=== PATIENT | female | born 1970 | race Caucasian/White ===

== ENCOUNTER 2017-09-08 22:30 | Emergency (ER) | payer SELFPAY ==
[~2017-09-08 22:30] MED LIST: Z.0.NO CURRENT MEDS
[2017-09-08 22:36] VITALS: BP 129/73; PULSE 82; RESP 20; TEMP 97.9; O2SAT 97
[2017-09-08] MEDS ORDERED: LEVO75TA3 PO (22:54)
[2017-09-08] MEDS ORDERED: PRAZ1CAP PO (22:54)
[2017-09-08] MEDS ORDERED: TRAZ100T6 PO (22:54)
--- NOTE | 2017-09-08 23:29 | PD ---
HPI Chief Complaint: Back/ Neck Pain or Injury Time Seen by Provider: 23:22 Travel History International Travel<30 days: No Contact w/Intl Traveler<30days: No Traveled to known affect area: No History of Present Illness HPI 47-year-old female patient with history of chronic neck and back pains, radiculopathy, had surgical treatment for her radiculopathy done in [place] in December, states that since then she has had ongoing problems with back pains with radiation down the right leg. She states that her symptoms are not going away and she cannot get connected with care here in [place], is currently following up with Alexei Milan for PTSD, and wants to get evaluated for her back because she states that it is continuing and she cannot live this way. She denies any fevers, a new injuries, but states she has shooting pains down her right leg on an intermittent basis for several months. Modifying Factors: None Associated Signs & Symptoms: Acute on chronic back pains Risk Factors: Does not have pain management doctor down here in [facility] Past Medical History Anemia: Yes Arthritis: Yes (OSTEOARTHRITIS) Asthma: Yes Anxiety: Yes Depression: Yes Cancer: Yes (CERVICAL AND UTERINE) Headaches: Yes Herniated Disk: Yes (L4-L5) Insomnia: Yes Medical other: Yes (PAIN MANAGEMENT "CAUTERIZED THE NERVES IN MY BACK" DEC 2016 ) Psychiatric: Yes (PTSD) Schizophrenia: Yes ("BORDERLINE" PER PT) Thyroid Disease: Yes (HYPOTHYROIDISM) Ulcer: Yes (GASTRIC) Tetanus Vaccination: < 5 Years Influenza Vaccination: No ?: Not : 5 Para: 2 Miscarriage: 2 : 1 Ovarian Cysts: Yes ("FALLOPIAN TUBE CYST RUPTURED") Tubal Ligation: Yes Past Surgical History Hysterectomy: Yes Joint Replacement: Yes (L KNEE - 2 SURGERIES) Oral Surgery: Yes (TEETH REMOVED) Other Surgery: Yes (MULTIPLE GANGLION CYSTS REMOVED FROM WRIST AND BACK) Social History Alcohol Use: Yes (8 PK BEER DAILY) Tobacco Use: Yes (1 PPD) Substance Use: Yes (LEGAL MARIJUANA (FROM [place])) Allergies-Medications (Allergen,Severity, Reaction): Coded Allergies: codeine (Unverified Allergy, Severe, 09/08/17) penicillin G (Unverified Allergy, Severe, 09/08/17) Reported Meds & Prescriptions Reported Meds & Active Scripts Active Reported Prazosin (Prazosin HCl) 1 Mg Cap 1 Mg PO HS Trazodone (Trazodone HCl) 100 Mg Tablet 100 Mg PO HS Levothyroxine (Levothyroxine Sodium) 75 Mcg Tab 75 Mcg PO DAILY Review of Systems Except as stated in HPI: all other systems reviewed are Neg Physical Exam Narrative GENERAL: Well-developed middle age female patient currently in mild distress. Awake and oriented 3. SKIN: Focused skin assessment warm/dry. HEAD: Atraumatic. Normocephalic. EYES: Pupils equal and round. No scleral icterus. No injection or drainage. ENT: No nasal bleeding or discharge. Mucous membranes pink and moist. NECK: Trachea midline. No JVD. CARDIOVASCULAR: Regular rate and rhythm. No murmur appreciated. RESPIRATORY: No accessory muscle use. Clear to auscultation. Breath sounds equal bilaterally. GASTROINTESTINAL: Abdomen soft, non-tender, nondistended. Hepatic and splenic margins not palpable. MUSCULOSKELETAL: No obvious deformities. No clubbing. No cyanosis. No edema. BACK: No CVA tenderness. No rash. Tenderness on palpation of the right lower back area going down to the right SI joint area. No saddle anesthesia. EXTREMITIES: No clubbing, cyanosis, or edema. No joint tenderness, effusion, or edema noted. No calf tenderness. NEUROLOGICAL: Awake and alert. No obvious cranial nerve deficits. Motor grossly within normal limits. Normal speech. PSYCHIATRIC: Appropriate mood and affect; insight and judgment normal. Data Data Last Documented VS Vital Signs Date Time Temp Pulse Resp B/P (MAP) Pulse Ox O2 Delivery O2 Flow Rate FiO2 09/08/17 22:36 97.9 82 20 129/73 (91) 97 Orders Orders Spine, Thoracic-Ap/Lat/Sw(3vw) (09/08/17 23:23) Spine, Lumbar Comp W/Obliq (09/08/17 23:23) Tramadol-Acetamin 37.5-325 Mg (Ultracet (09/08/17 23:30) MDM Medical Decision Making Medical Screen Exam Complete: Yes Emergency Medical Condition: Yes Medical Record Reviewed: Yes Interpretation(s) Last 24 hours Impressions Thoracic Spine X-Ray 09/08/17 6100 Signed Impressions: Service Date/Time: Friday, September 08, 2017 23:28 - CONCLUSION: Mild scoliosis and degenerative changes. No acute bony findings Toby Richard MD Lumbar Spine X-Ray 09/08/17 2323 Signed Impressions: Service Date/Time: Friday, September 08, 2017 23:28 - CONCLUSION: Scoliosis and degenerative changes. No acute bony findings. Toby Richard MD Differential Diagnosis Acute on chronic back pains: Radiculopathy versus muscle spasms versus acute fractures versus pain med seeking Narrative Course X-ray shows scoliosis but did not show any signs of other acute processes. At this point, patient had been given tramadol in the ER and vital signs are stable. It appears that this is an acute on chronic back pain and some of the issues are related to the fact that she has not yet been able to get connected with care in the area. My plan would be to release her with symptomatic relief or pain and follow-up to a primary care physician and pain management as needed. Return for any worsening in symptoms as necessary. The plan has discussed with her and she states understanding. Diagnosis Primary Impression: Acute exacerbation of chronic low back pain Referrals: [facility] Med/Other Pt SpecificInfo: Prescription(s) given Scripts Cyclobenzaprine (Flexeril) 10 Mg Tab 10 MG PO TID for Muscle Spasm, #15 TAB 0 Refills Prov: Nithya Maloney MD 09/09/17 Naproxen (Naprosyn) 500 Mg Tab 500 MG PO BID Y for PAIN SCALE 1 TO 10, #30 TAB 0 Refills Prov: Nithya Maloney MD 09/09/17 Disposition: 01 DISCHARGE HOME Condition: Stable Nithya Maloney MD Sep 08, 2017 23:29
[2017-09-08] MEDS ORDERED: traMADol/ACETAMINOPHEN 37.5/325 1 TAB PO ONE (23:30)
--- NOTE | 2017-09-09 00:15 | RADRPT ---
EXAM DATE/TIME: 09/08/2017 23:28 [facility] COMPARISON: No previous studies available for comparison. INDICATIONS : Back pain. MEDICAL HISTORY : None. SURGICAL HISTORY : None. ENCOUNTER: Initial ACUITY: >1 year PAIN SCORE: 7/10 LOCATION: thoracic spine. FINDINGS: There is mild degenerative change and slight scoliotic curvature in the lower thoracic spine. No defi nite fracture or destructive change. CONCLUSION: Mild scoliosis and degenerative changes. No acute bony findings Toby Richard MD on September 09, 2017 at 0:13 Board Certified Radiologist. This report was verified electronically.
--- NOTE | 2017-09-09 00:16 | RADRPT ---
EXAM DATE/TIME: 09/08/2017 23:28 [facility] COMPARISON: No previous studies available for comparison. INDICATIONS : Back pain. MEDICAL HISTORY : None. SURGICAL HISTORY : None. ENCOUNTER: Initial ACUITY: >1 year PAIN SCORE: 6/10 LOCATION: lumbar spine. FINDINGS: There is mild right convex lumbar scoliosis. No evidence of spondylolisthesis. Mild degenerative guillermo ges present with small primarily ventral endplate osteophytes at multiple levels. Oblique views revea l satisfactory alignment of the posterior facets. Mild lower lumbar posterior facet arthropathy noted . CONCLUSION: Scoliosis and degenerative changes. No acute bony findings. Toby Richard MD on September 09, 2017 at 0:14 Board Certified Radiologist. This report was verified electronically.
[2017-09-09] MEDS ORDERED: CYCL1TAB29 PO (00:30)
[2017-09-09] MEDS ORDERED: NAPR500 PO (00:30)
[2017-09-09 00:31] VITALS: BP 122/70; PULSE 78; RESP 18; O2SAT 97
== END 2017-09-09 00:43 | disposition home or self-care (01) ==
LOC: PHED 22:30
DX: M54.5 Low back pain (principal); G89.29 Other chronic pain; M79.604 Pain in right leg; E03.9 Hypothyroidism, unspecified; F17.200 Nicotine dependence, unspecified, uncomplicated; Z86.2 Personal history of diseases of the blood and blood-forming organs and certain disorders involving the immune mechanism; Z87.39 Personal history of other diseases of the musculoskeletal system and connective tissue; Z87.09 Personal history of other diseases of the respiratory system; Z87.19 Personal history of other diseases of the digestive system; Z85.42 Personal history of malignant neoplasm of other parts of uterus
CPT/HCPCS: 72072; 72110; 99283